=== PATIENT | female | born 1940 | race Caucasian/White ===

== ENCOUNTER 2019-04-09 13:12 | Emergency (ER) | payer MEDICARE, OTHER ==
--- NOTE | 2019-04-09 13:40 | ER Document Report ---
ED Medical Screen (RME) - General Chief Complaint: Chest Tightness Stated Complaint: SHORTNESS OF BREATH,CHEST TIGHTNESS Time Seen by Provider: 04/09/19 13:34 Information source: Patient Notes: Patient presents complaining of exertional shortness of breath for several weeks that worsened over the past 2 to 3 days. Patient states that she has chest heaviness with nausea. Patient denies any cough or cold symptoms. Patient does have a history of myasthenia gravis as well as atrial fibrillation. Patient has a previous history of stents as well as pacemaker. Patient is currently on Eliquis. I have greeted and performed a rapid initial assessment of this patient. A comprehensive ED assessment and evaluation of the patient, analysis of test results and completion of the medical decision making process will be conducted by additional ED providers. - Related Data Allergies/Adverse Reactions: GONZALES Inhibitors Allergy (Verified 04/09/19 13:33) morphine Allergy (Verified 04/09/19 13:32) oxycodone [From OxyContin] Allergy (Verified 04/09/19 13:32) Physical Exam - Vital signs Vitals: Temp Pulse Resp BP Pulse Ox 97.9 F 70 19 149/53 H 99 04/09/19 13:27 04/09/19 13:27 04/09/19 13:27 04/09/19 13:27 04/09/19 13:27 - Respiratory Respiratory status: No respiratory distress. No: Labored, Tachypnea Breath sounds: Normal Course - Vital Signs Vital signs: Temp Pulse Resp BP Pulse Ox 97.9 F 70 19 149/53 H 99 04/09/19 13:27 04/09/19 13:27 04/09/19 13:27 04/09/19 13:27 04/09/19 13:27
[2019-04-09 14:24] LABS: ABSOLUTE BASOPHILS # (AUTO) 0.1 10^3/uL (0.0-0.2); ABSOLUTE EOSINOPHILS # (AUTO) 0.2 10^3/uL (0.0-0.6); ABSOLUTE LYMPHOCYTES (AUTO) 1.7 10^3/uL (0.5-4.7); ABSOLUTE MONOCYTES (AUTO) 0.9 10^3/uL (0.1-1.4); BASOPHILS % (AUTO) 0.8 % (0-2); EOSINOPHILS % (AUTO) 2.6 % (0-6); HEMATOCRIT 32.5 % (36.0-47.0); HEMOGLOBIN 11.3 g/dL (12.0-15.5); LYMPHOCYTES % (AUTO) 21.5 % (13-45); MEAN CORPUSCULAR HEMOGLOBIN 31.3 pg (27.0-33.4); MEAN CORPUSCULAR HGB CONC 34.9 g/dL (32.0-36.0); MEAN CORPUSCULAR VOLUME 90 fl (80-97); MONOCYTES % (AUTO) 11.5 % (3-13); PLATELET COUNT 281 10^3/uL (150-450); RED BLOOD COUNT 3.61 10^6/uL (3.72-5.28); RED CELL DISTRIBUTION WIDTH 14.7 % (11.5-14.0); SEGMENTED NEUTROPHILS % (AUTO) 63.6 % (42-78); TOTAL CELLS COUNTED % (AUTO) 100 %; WHITE BLOOD COUNT 7.8 10^3/uL (4.0-10.5)
[2019-04-09 14:42] LABS: ALBUMIN 3.8 g/dL (3.5-5.0); ALKALINE PHOSPHATASE 107 U/L (38-126); ANION GAP 6 (5-19); ASPARTATE AMINO TRANSFERASE 39 U/L (14-36); BILIRUBIN,DIRECT 0.3 mg/dL (0.0-0.4); BILIRUBIN,TOTAL 0.4 mg/dL (0.2-1.3); BLOOD UREA NITROGEN 24 mg/dL (7-20); CALCIUM 9.4 mg/dL (8.4-10.2); CARBON DIOXIDE 30 mmol/L (22-30); CHLORIDE 99 mmol/L (98-107); GLUCOSE 94 mg/dL (75-110); TOTAL PROTEIN 7.2 g/dL (6.3-8.2)
[2019-04-09 14:54] LABS: NT PRO BNP 346 pg/mL (<450)
[2019-04-09 15:04] LABS: TROPONIN I < 0.012 ng/mL
--- NOTE | 2019-04-09 15:15 | RADIOLOGY REPORT (SQ) ---
EXAM DESCRIPTION: CHEST 2 VIEWS COMPLETED DATE/TIME: 04/09/2019 2:58 pm REASON FOR STUDY: cp, sob COMPARISON: None. EXAM PARAMETERS: NUMBER OF VIEWS: two views TECHNIQUE: Digital Frontal and Lateral radiographic views of the chest acquired. RADIATION DOSE: NA LIMITATIONS: none FINDINGS: LUNGS AND PLEURA: No consolidation, pneumothorax or pleural effusion. MEDIASTINUM AND HILAR STRUCTURES: No masses or contour abnormalities. HEART AND VASCULAR STRUCTURES: Heart normal size. No evidence for failure. BONES: Multilevel degenerative changes at the spine with compression deformities at the midthoracic s pine. Partially visualized orthopedic hardware at the lower cervical spine. HARDWARE: There is a left-sided pacemaker. Round radiopaque density at the region of the GE junction , may be secondary to lap band procedure. IMPRESSION: No radiographic evidence of acute cardiopulmonary process. TECHNICAL DOCUMENTATION: JOB ID: [id number] [employer]- All Rights Reserved Reading location - IP/workstation name: [email or web address]
--- NOTE | 2019-04-09 15:47 | ER Document Report ---
Entered by DANIELLA MALONE SCRIBE 04/09/19 1507 Acting as scribe for:ZOLTAN BARRETT MD ED General - General Chief Complaint: Shortness Of Breath Stated Complaint: SHORTNESS OF BREATH,CHEST TIGHTNESS Time Seen by Provider: 04/09/19 13:34 Primary Care Provider: DAVID VILLAVICENCIO MD [Primary Care Provider] - Follow up as needed Mode of Arrival: Ambulatory Information source: Patient Notes: This 78 year old female patient with a history of A fib and myasthenia gravis presents to the ED today with complaints of intermittent shortness of breath for the past several weeks that has progressively gotten worse x2-3 days ago. Patient reports associated chest tightness/discomfort in the sternal region and a nonproductive cough that is worsened with deep inhalation. Patient states the symptoms worsen with exertion. Patient notes that she is from [place] and that she has been in the area with her daughter for the past couple months looking for medical care. Patient states that she was seen at Dr. Villavicencio's office and received a full work up and is waiting on a referral to a procurement professional logistics. TRAVEL OUTSIDE OF THE [place] IN LAST 30 DAYS: No - Related Data Allergies/Adverse Reactions: GONZALES Inhibitors Allergy (Verified 04/09/19 13:33) morphine Allergy (Verified 04/09/19 13:32) oxycodone [From OxyContin] Allergy (Verified 04/09/19 13:32) Home Medications: Eliquis, Famotidine, Pyridostigmine bromide, Metoprolol Past Medical History - General Information source: Patient - Social History Smoking Status: Never Smoker Cigarette use (# per day): No Chew tobacco use (# tins/day): No Smoking Education Provided: No Frequency of alcohol use: None Drug Abuse: None Lives with: Family Family History: Reviewed & Not Pertinent Patient has suicidal ideation: No Patient has homicidal ideation: No - Past Medical History Cardiac Medical History: Reports: Hx Atrial Fibrillation, Hx Coronary Artery Disease, Hx Hypertension Malignancy Medical History: Reports: Hx Breast Cancer Musculoskeletal Medical History: Reports Other - Myasthenia Gravis Psychiatric Medical History: Reports: Hx Depression Past Surgical History: Reports: Hx Coronary Artery Bypass Graft - Lap band in 2007, Hx Coronary Stent - 2 LAD stents placed in 2006, Hx Orthopedic Surgery - L wrist with carpal tunnel in 1999, Hx Pacemaker - 2016, Other - Posterior cervical spine fusion C3-5 in August 2018 Review of Systems - Review of Systems Constitutional: No symptoms reported EENT: No symptoms reported Cardiovascular: See HPI, Other - Chest tightness/discomfort Respiratory: See HPI, Cough Gastrointestinal: No symptoms reported Genitourinary: No symptoms reported Female Genitourinary: No symptoms reported Musculoskeletal: No symptoms reported Skin: No symptoms reported Hematologic/Lymphatic: No symptoms reported Neurological/Psychological: No symptoms reported -: Yes All other systems reviewed and negative Physical Exam - Vital signs Vitals: Temp Pulse Resp BP Pulse Ox 97.9 F 70 19 149/53 H 99 04/09/19 13:27 04/09/19 13:27 04/09/19 13:27 04/09/19 13:04/09/19 13:27 - General General appearance: Alert - HEENT Head: Normocephalic, Atraumatic Eyes: Normal Pupils: PERRL - Respiratory Respiratory status: No respiratory distress Chest status: Tender - Mid and lower sternum tenderness with palpation Breath sounds: Normal Chest palpation: Normal - Cardiovascular Rhythm: Regular Heart sounds: Normal auscultation Murmur: No - Abdominal Inspection: Normal Distension: No distension Bowel sounds: Normal Tenderness: Nontender Organomegaly: No organomegaly - Back Back: Normal, Nontender - Extremities General upper extremity: Normal inspection General lower extremity: Normal inspection. No: Edema - No peripheral edema - Neurological Neuro grossly intact: Yes - Psychological Associated symptoms: Normal affect, Normal mood - Skin Skin Temperature: Warm Skin Moisture: Dry Skin Color: Normal Course - Vital Signs Vital signs: Temp Pulse Resp BP Pulse Ox 97.9 F 70 19 149/53 H 99 04/09/19 13:27 04/09/19 13:27 04/09/19 13:27 04/09/19 13:27 04/09/19 13:27 - Laboratory Result Diagrams: 04/09/19 14:20 04/09/19 14:20 Laboratory results interpreted by me: 04/09/19 04/09/19 14:20 14:20 RBC 3.61 L Hgb 11.3 L Hct 32.5 L RDW 14.7 H Sodium 134.5 L BUN 24 H Est GFR (MDRD) Non-Af 51 L AST 39 H - Diagnostic Test Radiology reviewed: Image reviewed, Reports reviewed - Chest x-ray is unrema rkable - EKG Interpretation by [facility] EKG shows normal: [place], Intervals, QRS Complexes, ST-T Waves. abnormal: Sinus rhythm Rate: Normal - 70 Rhythm: Other - Atrial paced rhythm When compared to previous EKG there are: Previous EKG unavailable Discharge - Discharge Clinical Impression: Dyspnea on exertion, Chest wall pain Condition: Stable Disposition: HOME, SELF-CARE Additional Instructions: Dyspnea, Nonspecific You were evaluated for shortness of breath, or dyspnea. Dyspnea has many causes, and some are more serious than others. Sometimes it's impossible to diagnose the cause of dyspnea with the tests that are available on an emergency basis. Based on our evaluation today, you do not need hospitalization now. We found no evidence of pneumonia, collapsed lung, blood clots in the lung, tumors, or heart failure. Causes of non-specific dyspnea can include asthma or bronchospasm, hyperventilation, emotional distress, heart disease, emphysema, fibrosis of the lung, and stiffness of the chest wall. In healthy individuals with a single episode, it's sometimes reasonable to do nothing but wait to see if the problem occurs again. Additional tests used to evaluate dyspnea can include cardiac stress testing, echocardiography, pulmonary function testing, CAT scan of the chest, bronchoscopy or pulmonary biopsy. Return if shortness of breath persists or worsens, or if you develop chest pain, fever, cough, confusion, or fainting. Continue your regular medications. Limit activity so you do not provoke your shortness of breath. Dr. Adis Chiang will have his office call you Wednesday for an appointment time this week. RETURN TO THE EMERGENCY ROOM IF ANY NEW OR WORSENING SYMPTOMS. Referrals: DAVID VILLAVICENCIO MD [Primary Care Provider] - Follow up as needed ADIS CHIANG MD [ACTIVE STAFF] - Follow up in 3-5 days (His office should call you Wednesday with an appointment for this week.) Salima[place] Attestation: 04/09/19 15:47 I personally performed the services described in the documentation, reviewed and edited the documentation which was dictated to the scribe in my presence, and it accurately records my words and actions. I personally performed the services described in the documentation, reviewed and edited the documentation which was dictated to the scribe in my presence, and it accurately records my words and actions.
[2019-04-09 17:06] VITALS: BP 145/60
--- NOTE | 2019-04-09 18:29 | EKG REPORT ---
SEVERITY:- ABNORMAL ECG - ATRIAL-PACED RHYTHM : Confirmed by: Franci Ramirez MD 09-Apr-2019 18:29:04
== END 2019-04-09 17:03 | disposition home or self-care (01) ==
LOC: ER 13:12
DX: R07.89 Other chest pain (principal); R06.09 Other forms of dyspnea; Z95.1 Presence of aortocoronary bypass graft; R06.02 Shortness of breath; R05 Cough; I25.10 Atherosclerotic heart disease of native coronary artery without angina pectoris; I10 Essential (primary) hypertension; G70.00 Myasthenia gravis without (acute) exacerbation; I48.91 Unspecified atrial fibrillation; Z79.01 Long term (current) use of anticoagulants; Z79.899 Other long term (current) drug therapy; Z95.0 Presence of cardiac pacemaker; Z85.3 Personal history of malignant neoplasm of breast; Z95.5 Presence of coronary angioplasty implant and graft; Z88.8 Allergy status to other drugs, medicaments and biological substances; Z88.6 Allergy status to analgesic agent; Z88.5 Allergy status to narcotic agent
CPT/HCPCS: 36415; 71046; 80053; 83880; 84484; 85025; 93005; 93010; 99285

== ENCOUNTER → 2019-04-17 | Outpatient (CLI) | payer MEDICARE ==
--- NOTE | 2019-04-17 08:09 | WOMENS IMAGING REPORT ---
EXAM DESCRIPTION: U/S ABDOMEN TOTAL COMPLETED DATE/TIME: 04/17/2019 7:58 am REASON FOR STUDY: R10.816 ABDOMINAL TENDERNESS R10.816 EPIGASTRIC ABDOMINAL TENDERNESS COMPARISON: None. TECHNIQUE: Dynamic and static grayscale images acquired of the abdomen and recorded on PACS. Additio nal selected color Doppler and spectral images recorded. Note: Study does not meet criteria for complete doppler/duplex scan LIMITATIONS: Limited visualization of the pancreas and aorta secondary to overlying bowel gas. FINDINGS: PANCREAS: The pancreas is obscured by overlying bowel gas. LIVER: No masses. Echotexture normal. LIVER VASCULATURE: Normal directional flow of the main portal vein and hepatic veins. GALLBLADDER: No stones. Normal wall thickness. No pericholecystic fluid. ULTRASOUND-DETECTED MATA'S SIGN: Negative. INTRAHEPATIC DUCTS AND COMMON DUCT: CBD and intrahepatic ducts normal caliber. No filling defects. INFERIOR VENA CAVA: Normal flow. AORTA: Visualized abdominal aorta are normal in caliber. RIGHT KIDNEY: Normal size. Normal echogenicity. No solid or suspicious masses. No hydronephros is. No calcifications. LEFT KIDNEY: Normal size. Normal echogenicity. No solid or suspicious masses. No hydronephrosi s. No calcifications. SPLEEN: Normal size. No solid masses. PERITONEAL AND PLEURAL SPACES: No ascites or effusions. OTHER: No other significant finding. IMPRESSION: NORMAL ABDOMINAL ULTRASOUND. TECHNICAL DOCUMENTATION: JOB ID: [id number] [employer]- All Rights Reserved Reading location - IP/workstation name: [email or web address]
== END ==
LOC: WI 07:25
PROVIDERS: ATTEND Internal Medicine Gastroenterology
DX: R10.816 Epigastric abdominal tenderness (principal)
CPT/HCPCS: 76700